=== PATIENT | male | born 1940 | race Caucasian/White ===

== ENCOUNTER 2023-02-20 20:48 | Inpatient (IN) | payer MEDICARE, BC ==
[~2023-02-20] VITALS: Ht 172.7 cm; Wt 76.2 kg
[2023-02-20 20:30] VITALS: O2SAT 99
[2023-02-20] MEDS ORDERED: LEVO25TA2 PO (21:02)
[2023-02-20] MEDS ORDERED: APIX5TAB4 PO (21:02)
[2023-02-20 21:49] LABS: BASOPHILS # (AUTO) 0.1 K/UL (0.0-0.2); BASOPHILS % (AUTO) 0.8 % (0.0-2.0); EOSINOPHILS # (AUTO) 0.2 K/uL (0.0-0.7); EOSINOPHILS % (AUTO) 2.4 % (0.0-7.0); HEMATOCRIT 27.3 % (36.7-47.1); HEMOGLOBIN 8.9 g/dL (12.5-16.3); LYMPHOCYTES # (AUTO) 0.6 K/uL (0.8-4.8); LYMPHOCYTES % (AUTO) 7.1 % (20.5-51.5); MEAN CORPUSCULAR HEMOGLOBIN 31.5 uug (23.8-33.4); MEAN CORPUSCULAR HGB CONC 33 g/dL (32.5-36.3); MEAN CORPUSCULAR VOLUME 96.4 fL (73.0-96.2); MONOCYTES # (AUTO) 0.7 K/uL (0.1-1.30); MONOCYTES % (AUTO) 7.6 % (0.0-11.0); NEUTROPHILS # (AUTO) 7.2 K/uL (1.8-8.9); NEUTROPHILS % (AUTO) 82.1 % (38.5-71.5); PLATELET COUNT (AUTO) 445 K/uL (152-348); RED BLOOD CELL COUNT(AUTO) 2.83 MIL/uL (4.06-5.63); RED CELL DISTRIBUTION WIDTH 19.8 % (12.1-16.2); WHITE BLOOD COUNT (AUTO) 8.7 K/uL (3.6-10.2)
[2023-02-20 22:00] LABS: CALCIUM 9.4 mg/dL (8.5-10.1); CARBON DIOXIDE 28 mmol/L (21-32); CHLORIDE 104 mmol/L (98-107); CREATININE 1.2 mg/dL (0.6-1.3); GLUCOSE 125 mg/dL (74-106); POTASSIUM 5.3 mmol/L (3.5-5.1); SODIUM SERUM 141 mmol/L (136-145); UREA NITROGEN, BLOOD 54 mg/dL (7-18)
[2023-02-20] MEDS ORDERED: FUROSEMIDE 40 MG/4 ML VIAL IV ONE (22:00)
[2023-02-20] MEDS ORDERED: FUROSEMIDE 40 MG/4 ML VIAL ONE (22:05)
[2023-02-20 22:06] LABS: DIFFERENTIAL COMMENT 1
[2023-02-20 22:13] LABS: ALANINE AMINOTRANSFERASE 11 U/L (16-63); ALBUMIN 2.5 g/dL (3.4-5.0); ALKALINE PHOSPHATASE 78 U/L (50-136); ASPARTATE AMINOTRANSFERASE 23 U/L (15-37); BILIRUBIN,DIRECT 0.1 mg/dL (0.0-0.2); BILIRUBIN,TOTAL 0.5 mg/dL (0.2-1.0); NT-PRO BNP 15043 pg/mL (0-125); TOTAL PROTEIN, SERUM 6.8 g/dL (6.4-8.2)
[2023-02-20] MEDS ORDERED: SPIRONOLACTONE 50 MG TABLET PO SCH (22:15)
[2023-02-20] MEDS ORDERED: MENT113O13 TOP (22:34)
[2023-02-20] MEDS ORDERED: EPOE200012 IJ (22:34)
[2023-02-20] MEDS ORDERED: MELA3CAP2 GT (22:34)
[2023-02-20] MEDS ORDERED: METO25TA6 PO (22:34)
[2023-02-20] MEDS ORDERED: APIX5TAB GT (22:34)
[2023-02-20] MEDS ORDERED: LEVO100T10 GT (22:34)
[2023-02-20] MEDS ORDERED: ONDANSETRON 4 MG/2 ML VIAL IV PRN (22:45)
[2023-02-20] MEDS ORDERED: MAGNESIUM HYDROXIDE 30 ML LIQUID UDC PO PRN (22:45)
[2023-02-20] MEDS ORDERED: REMEDY ESSENTIAL ZINC PASTE 113 GM TP PRN (22:45)
[2023-02-20] MEDS ORDERED: EPOETIN ALFA 20,000 UNIT/ML ML IJ SCH (22:45)
[2023-02-20] MEDS ORDERED: ACETAMINOPHEN 325 MG TABLET PO PRN (22:45)
[2023-02-20] MEDS ORDERED: SPIRONOLACTONE 50 MG TABLET ONE (23:02)
[2023-02-21 00:30] LABS: ABG BASE EXCESS 1.5 mmol/L; ABG HCO3 24.9 mmol/L; ABG PH 7.482 (7.350-7.450); ABG PO2 157.7 mmHg (75.0-100.0); ABG SITE LEFT RADIAL; ABG TOTAL HEMOGLOBIN 9.1 G/dL (13.5-18.0); COHb 0.7 % (0.5-1.5); MetHb 0.3 % (0.0-1.5); O2Hb 98.2 % (94.0-97.0)
[2023-02-21] MEDS ORDERED: BALS60OI TP (02:50)
[2023-02-21] MEDS: MELATONIN 3 MG TABLET GT SCH ×2 (03:16→21:37)
[2023-02-21 04:00] VITALS: BP 135/75; TEMP 97.5; O2SAT 95
[2023-02-21 06:43] LABS: ABG BASE EXCESS 3.9 mmol/L; ABG PCO2 33.8 mmHg (35.0-45.0); ABG PH 7.521 (7.350-7.450); ABG PO2 141.9 mmHg (75.0-100.0); ABG SITE RIGHT RADIAL; ABG TOTAL HEMOGLOBIN 6.8 G/dL (13.5-18.0); COHb 0.5 % (0.5-1.5); MetHb 0.2 % (0.0-1.5); O2Hb 98.3 % (94.0-97.0)
[2023-02-21 06:54] LABS: BASOPHILS # (AUTO) 0.1 K/UL (0.0-0.2); BASOPHILS % (AUTO) 0.7 % (0.0-2.0); EOSINOPHILS # (AUTO) 0.2 K/uL (0.0-0.7); EOSINOPHILS % (AUTO) 3.1 % (0.0-7.0); HEMATOCRIT 23.8 % (36.7-47.1); HEMOGLOBIN 7.9 g/dL (12.5-16.3); LYMPHOCYTES # (AUTO) 0.6 K/uL (0.8-4.8); LYMPHOCYTES % (AUTO) 7.4 % (20.5-51.5); MEAN CORPUSCULAR HEMOGLOBIN 31.6 uug (23.8-33.4); MEAN CORPUSCULAR HGB CONC 33 g/dL (32.5-36.3); MEAN CORPUSCULAR VOLUME 95.6 fL (73.0-96.2); MONOCYTES # (AUTO) 0.6 K/uL (0.1-1.30); MONOCYTES % (AUTO) 8.6 % (0.0-11.0); NEUTROPHILS % (AUTO) 80.2 % (38.5-71.5); PLATELET COUNT (AUTO) 359 K/uL (152-348); RED CELL DISTRIBUTION WIDTH 19.7 % (12.1-16.2); WHITE BLOOD COUNT (AUTO) 7.5 K/uL (3.6-10.2)
[2023-02-21] MEDS ORDERED: LEVOTHYROXINE SODIUM 100 MCG TABLET GT SCH (07:00)
[2023-02-21 07:45] LABS: ALBUMIN 2.3 g/dL (3.4-5.0); BILIRUBIN,TOTAL 0.4 mg/dL (0.2-1.0); CALCIUM 9.3 mg/dL (8.5-10.1); CREATININE 1.3 mg/dL (0.6-1.3); POTASSIUM 4.1 mmol/L (3.5-5.1)
[2023-02-21 08:00] VITALS: BP 132/81; TEMP 97.9; O2SAT 99
[2023-02-21 08:12] LABS: DIFFERENTIAL COMMENT 1; RED BLOOD CELL COUNT(AUTO) 2.49 MIL/uL (4.06-5.63)
[2023-02-21] MEDS ORDERED: APIXABAN 2.5 MG TABLET PO SCH (09:00)
[2023-02-21] MEDS: METOPROLOL TARTRATE 25 MG TABLET PO SCH ×2 (09:48→21:43)
[2023-02-21] MEDS: APIXABAN 5 MG TABLET PO SCH ×2 (09:48→21:45)
[2023-02-21] MEDS: FUROSEMIDE 40 MG/4 ML VIAL IV SCH ×2 (09:49→21:38)
[2023-02-21] MEDS ORDERED: OMEP40CA21 PO (10:45)
[2023-02-21] MEDS ORDERED: MENT3.5O TP (10:45)
[2023-02-21] MEDS ORDERED: SPIRONOLACTONE 50 MG TABLET PO SCH (10:58)
[2023-02-21] MEDS ORDERED: JEVITY 1.2 1000 ML LIQUID GT PRN (11:15)
[2023-02-21 11:30] VITALS: BP 127/83; TEMP 97
[2023-02-21] MEDS ORDERED: MEDIHONEY= THERAHONEY 1.5 OZ TUBE TOP SCH (11:30)
[2023-02-21] MEDS ORDERED: SODIUM HYPOCHLORITE 0.125% (QUARTER STRENGTH) 473 ML BOTTLE TP SCH (11:30)
[2023-02-21 16:00] VITALS: BP 119/69; TEMP 97.7; O2SAT 100
[2023-02-21] MEDS ORDERED: PROTEIN SUPPLEMENT (PROSTAT) 30 ML LIQUID GT SCH (17:00)
[2023-02-21 17:57] VITALS: O2SAT 99
[2023-02-21 20:00] VITALS: BP 136/81; TEMP 97.7; O2SAT 100
[2023-02-21] MEDS ORDERED: FURO10VI IV (23:38)
[2023-02-21] MEDS ORDERED: LACT-209 GT (23:38)
[2023-02-21] MEDS ORDERED: SPIR50TA PO (23:38)
[2023-02-21] MEDS ORDERED: PROT30LI GT (23:38)
[2023-02-22 01:07] VITALS: BP 128/80; TEMP 97.5; O2SAT 100
== END 2023-02-22 02:27 | disposition short-term general hospital (02) | DRG 291 ==
LOC: ER 20:51 → TELE-TD3 23:00
PROVIDERS: ADMIT Internal Medicine; ATTEND Internal Medicine
DX: I13.0 Hypertensive heart and chronic kidney disease with heart failure and stage 1 through stage 4 chronic kidney disease, or unspecified chronic kidney disease (principal); I50.33 Acute on chronic diastolic (congestive) heart failure; J96.01 Acute respiratory failure with hypoxia; N17.9 Acute kidney failure, unspecified; D68.59 Other primary thrombophilia; N18.9 Chronic kidney disease, unspecified; Z93.3 Colostomy status; Z86.16 Personal history of COVID-19; Z93.1 Gastrostomy status; Z86.718 Personal history of other venous thrombosis and embolism; Z79.01 Long term (current) use of anticoagulants; I25.10 Atherosclerotic heart disease of native coronary artery without angina pectoris; Z87.19 Personal history of other diseases of the digestive system; Z90.49 Acquired absence of other specified parts of digestive tract; Z79.899 Other long term (current) drug therapy; I48.0 Paroxysmal atrial fibrillation; I08.3 Combined rheumatic disorders of mitral, aortic and tricuspid valves
CPT/HCPCS: 36415; 36600; 71045; 83605; 83735; 84484; 85025; 85730; 93005; 93307; A6213; G0378; J1940

== ENCOUNTER 2023-06-18 20:16 | Inpatient (IN) | payer MEDICARE, BC ==
[~2023-06-18] VITALS: Ht 177.8 cm; Wt 76.3 kg
[~2023-06-18 20:16] MED LIST: APIX5TAB GT; BALS60OI TP; EPOE200012 IJ; FURO10VI IV; LACT-209 GT; LEVO100T10 GT; MELA3CAP2 GT; MENT113O13 TOP; MENT3.5O TP; METO25TA6 PO; OMEP40CA21 PO; PROT30LI GT; SPIR50TA PO
[2023-06-18] MEDS ORDERED: levoFLOXacin 750MG/D5W 150 ML IV ONE ×2 (21:00→21:45)
[2023-06-18 21:13] LABS: BASOPHILS # (AUTO) 0.1 K/UL (0.0-0.2); BASOPHILS % (AUTO) 0.8 % (0.0-2.0); EOSINOPHILS # (AUTO) 0.1 K/uL (0.0-0.7); EOSINOPHILS % (AUTO) 2.2 % (0.0-7.0); HEMATOCRIT 25.7 % (36.7-47.1); LYMPHOCYTES # (AUTO) 0.3 K/uL (0.8-4.8); LYMPHOCYTES % (AUTO) 4.8 % (20.5-51.5); MEAN CORPUSCULAR HEMOGLOBIN 24.7 uug (23.8-33.4); MEAN CORPUSCULAR HGB CONC 31 g/dL (32.5-36.3); MEAN CORPUSCULAR VOLUME 79.1 fL (73.0-96.2); MONOCYTES # (AUTO) 0.6 K/uL (0.1-1.30); MONOCYTES % (AUTO) 9.3 % (0.0-11.0); NEUTROPHILS # (AUTO) 5.5 K/uL (1.8-8.9); NEUTROPHILS % (AUTO) 82.9 % (38.5-71.5); PLATELET COUNT (AUTO) 356 K/uL (152-348); RED BLOOD CELL COUNT(AUTO) 3.25 MIL/uL (4.06-5.63); RED CELL DISTRIBUTION WIDTH 18.5 % (12.1-16.2); WHITE BLOOD COUNT (AUTO) 6.7 K/uL (3.6-10.2)
[2023-06-18 21:33] LABS: DIFFERENTIAL COMMENT 1
[2023-06-18 21:49] LABS: ALANINE AMINOTRANSFERASE 15 U/L (16-63); ALBUMIN 2.4 g/dL (3.4-5.0); ALKALINE PHOSPHATASE 48 U/L (50-136); ASPARTATE AMINOTRANSFERASE 7 U/L (15-37); BILIRUBIN,DIRECT 0.1 mg/dL (0.0-0.2); BILIRUBIN,TOTAL 0.4 mg/dL (0.2-1.0); CALCIUM 9.2 mg/dL (8.5-10.1); CHLORIDE 101 mmol/L (98-107); CREATININE 1.6 mg/dL (0.6-1.3); GLUCOSE 116 mg/dL (74-106); NT-PRO BNP 8688 pg/mL (0-125); POTASSIUM 4.1 mmol/L (3.5-5.1); SODIUM SERUM 146 mmol/L (136-145); TOTAL PROTEIN, SERUM 6.6 g/dL (6.4-8.2); UREA NITROGEN, BLOOD 57 mg/dL (7-18)
[2023-06-18 21:50] LABS: CARBON DIOXIDE 42 mmol/L (21-32)
[2023-06-18] MEDS ORDERED: FUROSEMIDE 40 MG/4 ML VIAL IV ONE (22:00)
[2023-06-18] MEDS ORDERED: METOPROLOL SUCCINATE XL 25 MG TAB.SR.24H PO ONE ×2 (22:00→22:05)
[2023-06-18] MEDS ORDERED: LEVO125T GT (22:03)
[2023-06-18] MEDS ORDERED: EMPA25TA GT (22:03)
[2023-06-18] MEDS ORDERED: SIMV20TA2 GT (22:03)
[2023-06-18] MEDS ORDERED: APIX5TAB GT (22:03)
[2023-06-18] MEDS ORDERED: FURO-151 GT (22:03)
[2023-06-18] MEDS ORDERED: POTA20TA29 PO (22:03)
[2023-06-18] MEDS ORDERED: FUROSEMIDE 40 MG/4 ML VIAL ONE (22:04)
[2023-06-18] MEDS ORDERED: ACETAMINOPHEN 325 MG TABLET PO PRN (23:00)
[2023-06-18] MEDS ORDERED: REMEDY ESSENTIAL ZINC PASTE 113 GM TP PRN (23:00)
[2023-06-18] MEDS ORDERED: MAGNESIUM HYDROXIDE 30 ML LIQUID UDC PO PRN (23:00)
[2023-06-18] MEDS ORDERED: ONDANSETRON 4 MG/2 ML VIAL IV PRN (23:00)
[2023-06-18 23:30] VITALS: BP 114/71; TEMP 97.5; O2SAT 100
[2023-06-19] MEDS ORDERED: CEFEPIME HCL 1 G VIAL ONE ×2 (00:27→02:56)
[2023-06-19] MEDS: CEFEPIME HCL 1 G in IV DEXTROSE 5% 50 ML IV SCH ×3 (00:59→17:55)
[2023-06-19] MEDS: ENOXAPARIN SODIUM 30 MG/0.3 ML DISP.SYRIN SQ SCH ×2 (01:08→21:00)
[2023-06-19 04:00] VITALS: BP 114/58; TEMP 97.6; O2SAT 100
[2023-06-19 07:37] LABS: BASOPHILS # (AUTO) 0.1 K/UL (0.0-0.2); BASOPHILS % (AUTO) 1.1 % (0.0-2.0); DIFFERENTIAL COMMENT 0; EOSINOPHILS # (AUTO) 0.2 K/uL (0.0-0.7); EOSINOPHILS % (AUTO) 3.2 % (0.0-7.0); HEMATOCRIT 23.4 % (36.7-47.1); HEMOGLOBIN 7.5 g/dL (12.5-16.3); LYMPHOCYTES # (AUTO) 0.3 K/uL (0.8-4.8); LYMPHOCYTES % (AUTO) 6.9 % (20.5-51.5); MEAN CORPUSCULAR HEMOGLOBIN 25.5 uug (23.8-33.4); MEAN CORPUSCULAR HGB CONC 32 g/dL (32.5-36.3); MEAN CORPUSCULAR VOLUME 79.1 fL (73.0-96.2); MONOCYTES # (AUTO) 0.7 K/uL (0.1-1.30); MONOCYTES % (AUTO) 13.6 % (0.0-11.0); NEUTROPHILS # (AUTO) 3.8 K/uL (1.8-8.9); NEUTROPHILS % (AUTO) 75.2 % (38.5-71.5); PLATELET COUNT (AUTO) 324 K/uL (152-348); RED BLOOD CELL COUNT(AUTO) 2.96 MIL/uL (4.06-5.63); RED CELL DISTRIBUTION WIDTH 18.5 % (12.1-16.2); WHITE BLOOD COUNT (AUTO) 5.1 K/uL (3.6-10.2)
[2023-06-19 08:35] LABS: CALCIUM 9.4 mg/dL (8.5-10.1); CHLORIDE 103 mmol/L (98-107); CHOLESTEROL 126 mg/dL (<200); CREATININE 1.7 mg/dL (0.6-1.3); GLUCOSE 102 mg/dL (74-106); HDL CHOLESTEROL 52 mg/dL (40-60); MAGNESIUM 2.4 mg/dL (1.8-2.4); PHOSPHOROUS 4.4 mg/dL (2.5-4.9); POTASSIUM 3.8 mmol/L (3.5-5.1); SODIUM SERUM 147 mmol/L (136-145); TRIGLYCERIDES 54 MG/DL (30-150); UREA NITROGEN, BLOOD 53 mg/dL (7-18)
[2023-06-19 08:37] LABS: CARBON DIOXIDE 40 mmol/L (21-32)
[2023-06-19] MEDS ORDERED: ACETAzolamide SODIUM 500 MG VIAL IV ONE (09:00)
[2023-06-19] MEDS: FUROSEMIDE 40 MG/4 ML VIAL IV SCH ×2 (09:32→22:46)
[2023-06-19 09:39] LABS: THYROID STIMULATING HORMONE 3.111 mIU/mL (0.358-3.740)
[2023-06-19 11:20] VITALS: BP 104/60; TEMP 98.3; O2SAT 100
[2023-06-19] MEDS ORDERED: MAGNESIUM HYDROXIDE 30 ML LIQUID UDC GT PRN (12:30)
[2023-06-19 15:14] VITALS: BP 101/63; TEMP 98.4; O2SAT 99
[2023-06-19] MEDS ORDERED: OMEP40CA21 PO (15:44)
[2023-06-19] MEDS ORDERED: TRAZ-182 PO (15:44)
[2023-06-19] MEDS ORDERED: TRAZODONE 50 MG TABLET PO PRN (16:00)
[2023-06-19 16:05] VITALS: O2SAT 99
[2023-06-19 18:53] LABS: PROTEIN, BODY FLUID 3.2 G/DL
[2023-06-19 19:02] LABS: TOTAL VOLUME,BODY FLUID 25 mL
[2023-06-19 20:00] VITALS: BP 97/62; TEMP 97.7; O2SAT 97
[2023-06-19] MEDS: METOPROLOL TARTRATE 25 MG TABLET GT SCH (21:29)
[2023-06-20] VITALS: BP 108/64; TEMP 97.6; O2SAT 97
[2023-06-20 02:12] VITALS: O2SAT 99
[2023-06-20 02:39] LABS: POLYNUCLEAR, BODY FLUID 6 % (0-25%)
[2023-06-20 02:44] LABS: MACROPHAGES, BODY FLUID 36
[2023-06-20 02:45] LABS: MONOCYTES,BODY FLUID 12 %
[2023-06-20 03:03] LABS: WBC, BODY FLUID 631 /cu. mm (0-200/cu.mm)
[2023-06-20 04:00] VITALS: BP 125/67; TEMP 97.8; O2SAT 98
[2023-06-20] MEDS: CEFEPIME HCL 1 G in IV DEXTROSE 5% 50 ML IV SCH (05:55)
[2023-06-20] MEDS ORDERED: LEVOTHYROXINE SODIUM 125 MCG TABLET GT SCH (06:00)
[2023-06-20] MEDS ORDERED: PANTOPRAZOLE SODIUM 40 MG TABLET.DR PO SCH (07:00)
[2023-06-20 08:00] LABS: BASOPHILS # (AUTO) 0.1 K/UL (0.0-0.2); BASOPHILS % (AUTO) 0.9 % (0.0-2.0); EOSINOPHILS # (AUTO) 0.2 K/uL (0.0-0.7); EOSINOPHILS % (AUTO) 3.7 % (0.0-7.0); HEMATOCRIT 25.7 % (36.7-47.1); HEMOGLOBIN 8.1 g/dL (12.5-16.3); LYMPHOCYTES # (AUTO) 0.2 K/uL (0.8-4.8); LYMPHOCYTES % (AUTO) 3.1 % (20.5-51.5); MEAN CORPUSCULAR HEMOGLOBIN 24.9 uug (23.8-33.4); MEAN CORPUSCULAR HGB CONC 31 g/dL (32.5-36.3); MEAN CORPUSCULAR VOLUME 79.6 fL (73.0-96.2); MONOCYTES # (AUTO) 0.7 K/uL (0.1-1.30); MONOCYTES % (AUTO) 10.8 % (0.0-11.0); NEUTROPHILS # (AUTO) 5.4 K/uL (1.8-8.9); NEUTROPHILS % (AUTO) 81.5 % (38.5-71.5); PLATELET COUNT (AUTO) 335 K/uL (152-348); RED BLOOD CELL COUNT(AUTO) 3.23 MIL/uL (4.06-5.63); RED CELL DISTRIBUTION WIDTH 18.5 % (12.1-16.2); WHITE BLOOD COUNT (AUTO) 6.6 K/uL (3.6-10.2)
[2023-06-20 08:02] LABS: DIFFERENTIAL COMMENT 1
[2023-06-20 08:20] LABS: ALANINE AMINOTRANSFERASE 9 U/L (16-63); ALBUMIN 2.3 g/dL (3.4-5.0); ALKALINE PHOSPHATASE 48 U/L (50-136); ASPARTATE AMINOTRANSFERASE 6 U/L (15-37); BILIRUBIN,TOTAL 0.5 mg/dL (0.2-1.0); CALCIUM 9.2 mg/dL (8.5-10.1); CARBON DIOXIDE 39 mmol/L (21-32); CHLORIDE 101 mmol/L (98-107); CREATINE KINASE, TOTAL 23 U/L (39-308); CREATININE 1.8 mg/dL (0.6-1.3); GLUCOSE 112 mg/dL (74-106); MAGNESIUM 2.5 mg/dL (1.8-2.4); PHOSPHOROUS 4.6 mg/dL (2.5-4.9); POTASSIUM 3.2 mmol/L (3.5-5.1); SODIUM SERUM 144 mmol/L (136-145); TOTAL PROTEIN, SERUM 6.4 g/dL (6.4-8.2); UREA NITROGEN, BLOOD 55 mg/dL (7-18)
[2023-06-20] MEDS ORDERED: POTASSIUM CHLORIDE 20 MEQ POWDER PACKET GT ONE (08:45)
[2023-06-20] MEDS: FUROSEMIDE 40 MG/4 ML VIAL IV SCH (08:56)
[2023-06-20] MEDS: METOPROLOL TARTRATE 25 MG TABLET GT SCH (08:56)
[2023-06-20 11:32] VITALS: BP 98/55; TEMP 97.7; O2SAT 98
[2023-06-20 15:00] VITALS: BP 92/58; TEMP 97.6; O2SAT 99
[2023-06-20] MEDS ORDERED: FUROSEMIDE 40 MG TABLET PO SCH (17:00)
[2023-06-21 12:44] LABS: PTH, INTACT 17 pg/mL (15-65)
[2023-06-23 09:07] LABS: A/G RATIO 0.7 (0.7-1.7); ALBUMIN 2.3 g/dL (2.9-4.4); ALPHA-1-GLOBULIN 0.4 g/dL (0.0-0.4); ALPHA-2-GLOBULIN 1.1 g/dL (0.4-1.0); GAMMA GLOBULIN 0.9 g/dL (0.4-1.8); GLOBULIN, TOTAL 3.3 g/dL (2.2-3.9); M-SPIKE Not Observed g/dL (Not Observed)
== END 2023-06-20 15:00 | disposition home or self-care (01) | DRG 199 ==
LOC: ER 20:17 → TELE3 23:03
PROVIDERS: ADMIT Nurse Practitioner Acute Care; ATTEND Internal Medicine
PROC: 0W9B30Z Drainage of Left Pleural Cavity with Drainage Device, Percutaneous Approach (ICD-10-PCS; principal; 2023-06-19)
DX: J95.811 Postprocedural pneumothorax (principal); E43 Unspecified severe protein-calorie malnutrition; G93.41 Metabolic encephalopathy; I50.33 Acute on chronic diastolic (congestive) heart failure; J96.21 Acute and chronic respiratory failure with hypoxia; N17.0 Acute kidney failure with tubular necrosis; J94.2 Hemothorax; J98.11 Atelectasis; J91.8 Pleural effusion in other conditions classified elsewhere; N18.9 Chronic kidney disease, unspecified; R13.10 Dysphagia, unspecified; Z79.01 Long term (current) use of anticoagulants; Z99.81 Dependence on supplemental oxygen; Z93.1 Gastrostomy status; Z93.3 Colostomy status; Z86.718 Personal history of other venous thrombosis and embolism; Z90.49 Acquired absence of other specified parts of digestive tract; Z86.16 Personal history of COVID-19; Z79.899 Other long term (current) drug therapy; I70.0 Atherosclerosis of aorta; I27.20 Pulmonary hypertension, unspecified; I25.10 Atherosclerotic heart disease of native coronary artery without angina pectoris; I48.0 Paroxysmal atrial fibrillation; E88.09 Other disorders of plasma-protein metabolism, not elsewhere classified; F03.90 Unspecified dementia, unspecified severity, without behavioral disturbance, psychotic disturbance, mood disturbance, and anxiety; D63.8 Anemia in other chronic diseases classified elsewhere; R59.9 Enlarged lymph nodes, unspecified; Z87.01 Personal history of pneumonia (recurrent); R32 Unspecified urinary incontinence
CPT/HCPCS: 32555; 36415; 71045; 71250; 76770; 83615; 83735; 83970; 83986; 84100; 84155; 84165; 84443; 84484; 85025; 85610; 87040; 93005; G0378; J0692; J1120; J1650; J1940; J1956